=== PATIENT | female | born 1990 | race Two or more races ===

== ENCOUNTER 2016-11-07 05:49 | Emergency (ER) | payer SELFPAY ==
[2016-11-07 05:59] VITALS: BP 117/82
--- NOTE | 2016-11-07 06:12 | ED ---
Nirmala Benitez Rebecca, scribed for Jacoby Salazar MD on 11/07/16 at 0603 . Back Pain - HPI Summary HPI Summary: Pt is a 26 y/o F who presents to ED c/o back pain. Pain began yesterday morning while at work and has been constant since onset. 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 Pain is discrete to the lumbar region without radiation and is currently mild, ranked 3/10. Sx aggravated by movement, alleviated by nothing. No PMHx back problems. - History of Current Complaint Chief Complaint: EDBackInjuryPain Stated Complaint: BACK PAIN Time Seen by Provider: 11/07/16 05:55 Hx Obtained From: Patient Onset/Duration: Sudden Onset, Still Present Onset/Duration: Still Present Timing: Constant Back Pain Location: Is Discrete @ - Bilateral lumbar back Severity Currently: Mild Pain Intensity: 3 Pain Scale Used: 0-10 Numeric Aggravating Symptom(s): Movement Alleviating Symptom(s): Nothing Associated Signs And Symptoms: Positive: Negative Related History: Occupational Injury - Allergies/Home Medications Allergies/Adverse Reactions: Allergies Allergy/AdvReac Type Severity Reaction Status Date / Time Sulfa Antibiotics AdvReac Intermediate Nausea And Verified 11/07/16 05:59 Vomiting PMH/Surg Hx/FS Hx/Imm Hx Previously Healthy: Yes Endocrine/Hematology History: Denies: Hx Diabetes Cardiovascular History: Denies: Hx Coronary Artery Disease - Surgical History Surgery Procedure, Year, and Place: L knee surgery, [place] teeth Infectious Disease History: No Infectious Disease History: Denies: Traveled Outside the [place] in Last 30 Days - Family History Known Family History: Positive: Unknown - ADOPTED - Social History Alcohol Use: Occasionally Hx Substance Use: No Substance Use Type: Reports: None Hx Tobacco Use: Yes Smoking Status (MU): Current Every Day Smoker Review of Systems Negative: Fever Positive: Arthralgia - Lumbar back pain All Other Systems Reviewed And Are Negative: Yes Physical Exam Triage Information Reviewed: Yes Vital Signs On Initial Exam: Initial Vitals Temp Pulse Resp BP Pulse Ox 98.5 F 81 12 117/82 100 11/07/16 05:56 11/07/16 05:56 11/07/16 05:56 11/07/16 05:56 11/07/16 05:56 Vital Signs Reviewed: Yes Appearance: Positive: Well-Appearing, Pain Distress - mild discomfort Skin: Positive: Warm Head/Face: Positive: Normal Head/Face Inspection Eyes: Positive: POP ENT: Positive: Hearing grossly normal Neck: Positive: Supple Respiratory/Lung Sounds: Positive: Breath Sounds Present Musculoskeletal: Positive: Other - mild bilat paralumbar spasm, tender to palp Neurological: Positive: Normal Gait Psychiatric: Positive: Affect/Mood Appropriate Diagnostics - Vital Signs Vital Signs Temp Pulse Resp BP Pulse Ox 11/07/16 05:56 98.5 F 81 12 117/82 100 - Laboratory Lab Statement: Any lab studies that have been ordered have been reviewed, and results considered in the medical decision making process. Back Pain Course/Dx - Diagnoses Provider Diagnoses: Low back pain Discharge - Discharge Plan Condition: Stable Disposition: HOME Prescriptions: Cyclobenzaprine TAB* [Flexeril 10 MG TAB*] 10 mg PO TID #20 tab Patient Education Materials: Lower Back Exercises (ED), Low Back Strain (ED) Forms: *Work Release Referrals: Claudia CERVANTES,Roselyn [Primary Care Provider] - 3 Days The documentation as recorded by the Nirmala kearney Rebecca accurately reflects the service I personally performed and the decisions made by , Jacoby Salazar MD.
== END 2016-11-07 06:01 | disposition home or self-care (01) ==
LOC: ED 05:49
DX: M54.5 Low back pain (principal); Z88.2 Allergy status to sulfonamides; F17.210 Nicotine dependence, cigarettes, uncomplicated
CPT/HCPCS: 99281

== ENCOUNTER → 2017-11-23 03:36 | Emergency (ER) | payer OTHER ==
[~2017-11-23 03:36] MED LIST: Ketorolac INJ* 60 MG/2 ML VIAL IM ONE; predniSONE TAB* 20 MG PO ONE; traMADol TAB* 50 MG PO ONE
--- NOTE | 2017-11-23 04:03 | ED ---
Lower Extremity - HPI Summary HPI Summary: This is caio Singletray documenting for attending Dr. Josue Norris MD. A 27 y/o female presents to ED c/o intermittent sharp lower extremity pain reaching 8/10 in severity. Currently the patient is in severe pain distress from her bottom (buttock) down. According to the patient, she experiences intermittent lower extremity pain that started around midnight. She noted that the onset of pain was approximately one year ago, intermittently continuing, however, the pain was enough to be ignored. Today, she presents to the ED as it is "the worst pain ever". Pt denies any urinary issues and lower back pain. She noted that the pain is in a different spot then previous episodes. Additionally , the pain was not present before midnight, but began when she was completing routine activities as she believes she "tweaked it". It was noted that sitting aggravates the symptoms. - History of Current Complaint Chief Complaint: EDBackInjuryPain Stated Complaint: BACK INJURY Time Seen by Provider: 11/23/17 03:42 Hx Obtained From: Patient Mechanism Of Injury: Unknown - Possible "tweak" Onset of Pain: Hours Onset/Duration: Hours Severity Initially: Severe Severity Currently: Severe Pain Intensity: 8 Pain Scale Used: 0-10 Numeric Timing: Intermittent Location: Is Discrete @ - LE (bottom down). Associated Signs And Symptoms: Positive: Other - NEGATIVE: Back pain. Aggravating Factor(s): Other - Sitting. Alleviating Factor(s): Nothing Able to Bear Weight: Yes - Allergies/Home Medications Allergies/Adverse Reactions: Allergies Allergy/AdvReac Type Severity Reaction Status Date / Time MS Sulfa Antibiotics AdvReac Intermediate Nausea And Verified 11/07/16 05:59 [Sulfa Antibiotics] Vomiting PMH/Surg Hx/FS Hx/Imm Hx Endocrine/Hematology History: Denies: Hx Diabetes Cardiovascular History: Denies: Hx Coronary Artery Disease - Surgical History Surgery Procedure, Year, and Place: L knee surgery, [place] teeth Infectious Disease History: No Infectious Disease History: Denies: Traveled Outside the [place] in Last 30 Days - Family History Known Family History: Positive: Unknown - ADOPTED - Social History Alcohol Use: Occasionally Hx Substance Use: No Substance Use Type: Reports: None Hx Tobacco Use: Yes Smoking Status (MU): Current Every Day Smoker Review of Systems Negative: Fever Positive: no symptoms reported Positive: Other - NEGATIVE: Back pain; POSITIVE: LE pain (bottom down). All Other Systems Reviewed And Are Negative: Yes Physical Exam - Summary Physical Exam Summary: VITAL SIGNS: Reviewed. GENERAL: Patient is a well-developed and nourished female who is lying comfortable in the stretcher. Patient is not in any acute respiratory distress. HEAD AND FACE: No signs of trauma. No ecchymosis, hematomas or skull depressions. No sinus tenderness. EYES: PERRLA, EOMI x 2, No injected conjunctiva, no nystagmus. EARS: Hearing grossly intact. Ear canals and tympanic membranes are within normal limits. MOUTH: Oropharynx within normal limits. NECK: Supple, trachea is midline, no adenopathy, no JVD, no carotid bruit, no c- spine tenderness, neck with full ROM. CHEST: Symmetric, no tenderness at palpation LUNGS: Clear to auscultation bilaterally. No wheezing or crackles. CVS: Regular rate and rhythm, S1 and S2 present, no murmurs or gallops appreciated. ABDOMEN: Soft, non-tender. No signs of distention. No rebound no guarding, and no masses palpated. Bowel sounds are normal. EXTREMITIES: FROM in all major joints, no edema, no cyanosis or clubbing. Mild tenderness in the lumbar sacral area. Patient does have pain with dorsal affliction of left ankle. NEURO: Alert and oriented x 3. No acute neurological deficits. Speech is normal and follows commands. Neuro exam is intact. SKIN: Dry and warm Triage Information Reviewed: Yes Vital Signs On Initial Exam: Initial Vitals Temp Pulse Resp BP Pulse Ox 98.5 F 78 18 134/96 98 11/23/17 03:38 11/23/17 03:38 11/23/17 03:38 11/23/17 03:38 11/23/17 03:38 Vital Signs Reviewed: Yes Diagnostics - Vital Signs Vital Signs Temp Pulse Resp BP Pulse Ox 11/23/17 03:38 98.5 F 78 18 134/96 98 - Laboratory Lab Statement: Any lab studies that have been ordered have been reviewed, and results considered in the medical decision making process. - CT CT LUMBAR SPINE CT Interpretation Completed By: Radiologist - No acute findings. ED physician reviewed this radiology report. Lower Extremity Course/Dx - Course Course Of Treatment: A 27 y/o female presents to ED c/o intermittent sharp lower extremity pain reaching 8/10 in severity. Currently the patient is in severe pain distress from her bottom (buttock) down. A CT Lumbar Spine revealed no acute findings. In the ED course, the patient received Ultram, Deltasone and Toradol. Patient will be discharged with a diagnosis of left sided sciatica. Patient is to follow up with PCP in 1-2 days. Pt is agreeable with this plan. - Diagnoses Provider Diagnoses: Left sided sciatica Discharge - Sign-Out/Discharge Documenting (check all that apply): Patient Departure - DISCHARGE - Discharge Plan Condition: Stable Disposition: HOME Prescriptions: Ibuprofen TAB* [Motrin TAB* 800 MG] 800 mg PO Q6H PRN #60 tab PRN Reason: Pain predniSONE TAB* [Deltasone TAB*] 50 mg PO DAILY #7 tab traMADol TAB* [Ultram*] 50 mg PO Q6HR PRN #30 tab MDD 4 PRN Reason: Pain Patient Education Materials: Sciatica (ED) Forms: *Work Release Referrals: Roselyn Taylor NP [Primary Care Provider] - 2 Days Additional Instructions: RETURN TO ED FOR ANY NEW OR WORSENING SYMPTOMS.
[2017-11-23 04:11] LABS: Urine Appearance Clear; Urine Blood 1+ (Negative); Urine Color Straw; Urine Ketones Negative (Negative); Urine Protein Negative (Negative); Urine Red Blood Cell Trace(0-2/hpf) (Absent); Urine Specific Gravity 1.008 (1.010-1.030); Urine Urobilinogen Negative (Negative); Urine White Blood Cell Trace(0-5/hpf) (Absent)
[2017-11-23 06:27] VITALS: BP 119/80
--- NOTE | 2017-11-23 07:47 | RAD ---
INDICATION: Low back pain COMPARISON: There are no prior studies available for comparison. TECHNIQUE: Contiguous axial sections were obtained beginning lower thoracic vertebra and continuing through the sacrum. Images were reconstructed in the sagittal and coronal planes. FINDINGS: The vertebra are in normal alignment. No fracture is seen. There is no hyperdense material in the thecal sac to indicate acute hemorrhage. Incidentally noted is an incomplete left posterior lamina at the S1 level (axial image 84). Degenerative changes include loss of intervertebral disc height. There is no evidence for significant disc bulge or herniation. There is no evidence for spinal canal narrowing. The visualized soft tissues do not exhibit any acute abnormalities. The right hemipelvis there is a 3.8 cm fluid density structure most consistent with a dominant ovarian follicle in a woman of this age. IMPRESSION: No evidence of acute fracture or dislocation.
== END | disposition home or self-care (01) ==
LOC: ED 03:36
DX: M54.32 Sciatica, left side (principal); F17.200 Nicotine dependence, unspecified, uncomplicated; Z88.2 Allergy status to sulfonamides
CPT/HCPCS: 72131; 81003; 81015; 87077; 87086; 87186; 96372; 99282; A9270-GY; J1885; J7512

== ENCOUNTER 2018-02-05 19:29 | Emergency (ER) | payer BC, OTHER ==
[2018-02-05 20:20] LABS: ABS Basophils 0.1 10^3/ul (0-0.2); ABS Eosinophils 0.2 10^3/ul (0-0.6); ABS Lymphocytes 2.7 10^3/ul (1.0-4.8); ABS Monocytes 0.4 10^3/ul (0-0.8); ABS Nucleated RBC 0 10^3/ul; Eosinophil % 3.1 % (0-6); Hematocrit 43 % (35-47); Lymphocyte % 35.8 % (25-47); Mean Corpuscular HGB Conc 35 g/dl (31-36); Mean Corpuscular Hemoglobin 32 pg (27-31); Mean Corpuscular Volume 90 fL (80-97); Mean Platelet Volume 7.5 um3 (7.4-10.4); Nucleated Red Blood Cells % 0.1; Platelet Count 239 10^3/ul (150-450); Red Blood Count 4.74 10^6/ul (4.00-5.40); Red Cell Distribution Width 12 % (10.5-15); White Blood Count 7.4 10^3/ul (3.5-10.8)
[2018-02-05 20:29] LABS: INR 0.85 (0.77-1.02)
[2018-02-05 20:38] LABS: EGFR Non-African American 110.2 (>60)
[2018-02-05] MEDS ORDERED: ALPRAZolam TAB* 0.5 MG PO ONE (20:38)
--- OUTSIDE RECORDS SUMMARY | 2018-02-05 20:39 | XMS REPORT ---
:1990 External Reference #:[id number] Author Organization [facility] Address [address] [place], [place] [address] Phone [phone] Care Team Providers Name Role Phone Juana Sanchez MD Primary Care Physician Unavailable Payers Type Date Identification Numbers Payment Provider Subscriber Workers Compensation Effective: Policy Number: [place] Comp/ Jeri Mindy Natarajan 2016 [id number] Onset: 2016 PayID: [id number]; [address] [place] [address] Commercial Expires: 2015 PayID: [id number] Lev Employees [employer] [address] [place] [address] Supplemental Policy Effective: Group Number: Cont: Lev Mccollumall 2015 Employees Employees PayID: [id number] [address] [place] [address] Workers Compensation Effective: Policy Number: Jeri Work Comp Mindy Natarajan 2017 [id number] Onset: 2017 [facility] [address]; [address] [place] [address] Medigap Part B Effective: Policy Number: Blue Juan [employer] Mindy Natarajan 2017 [id number] PayID: [id number] [address] Problems Date Description Provider Status Onset: 12/04/2017 Mild depression Juana Sanchez M.D. Active Family History Date Family Member(s) Problem(s) Comments General Unknown Father 58 Social History Type Date Description Comments Marital Status Single Lives With Boyfriend Occupation Currently Working hospital aid at [employer] ETOH Use Denies alcohol use Smoking Light tobacco smoker (10 or fewer cigarettes/day) Recreational Drug Use Denies Drug Use Recreational Drug Use Former Drug User pot X 1 yr quit 2009 Exercise Type/Frequency Exercises rarely Allergies, Adverse Reactions, Alerts Date Description Reaction Status Severity Comments 12/13/2016 Sulfamethoxazole / Trimethoprim rash active Medications Medication Date Status Form Strength Qnty SIG Indications Ordering Provider Lidocaine 01/24/ Active Cream 5% 15gm apply Juana (Anorectal) 2017 daily Sanchez, 2-3 M.D. times a day as needed Norethindrone / Active Tablets 1-20mg-mcg Unknown Acetate/Ethinyl 0000 Estradiol/Ferrous Fumarate Fiber / Active Tablets one prn Unknown 0000 Ibuprofen / Active Tablets 800mg 1 tab by Unknown 0000 mouth every 8 hours as needed with food Colace / Active Capsules 100mg 1 tab by Unknown 0000 mouth 2-3 times a day as needed Amoxicillin/Clavul / Active Tablets 875-125mg bid anna Oliveira Potassium 0000 ALAYNA Sharpe Cyclobenzaprine / Hx Tablets 10mg one by Unknown HCL 0000 - mouth three 2017 times a day as needed spasm Calcium 1000 + D / Hx Tablets 1 by Unknown 0000 - mouth 01/03/ 2017 day Heart Dudley And / Hx Unknown Immunity 0000 - 2017 Tramadol HCL / Hx Tablets 50mg q 6 Elfar, 0000 - hours MD Josue 01/03/ prn 2018 Vital Signs Date Vital Result Comment 01/24/2018 Height 64 inches 5'4" Weight 138.00 lb Heart Rate 80 /min BP Systolic Sitting 110 mmHg BP Diastolic Sitting 68 mmHg O2 % BldC Oximetry 98 % BMI (Body Mass Index) 23.7 kg/m2 01/03/2018 Height 64 inches 5'4" Weight 139.00 lb Heart Rate 71 /min BP Systolic Sitting 118 mmHg BP Diastolic Sitting 68 mmHg O2 % BldC Oximetry 98 % BMI (Body Mass Index) 23.9 kg/m2 12/04/2017 Weight 137.00 lb Heart Rate 66 /min BP Systolic Sitting 128 mmHg BP Diastolic Sitting 76 mmHg Pain Level 7 O2 % BldC Oximetry 97 % 12/13/2016 Weight 129.00 lb Heart Rate 60 /min BP Systolic Sitting 98 mmHg BP Diastolic Sitting 60 mmHg Body Temperature 98.6 F O2 % BldC Oximetry 98 % 11/09/2016 Weight 131.00 lb Heart Rate 57 /min BP Systolic 116 mmHg BP Diastolic 68 mmHg Body Temperature 98.0 F O2 % BldC Oximetry 98 % Results Description No Information Procedures Description No Information Encounters Type Date Location Provider CPT E/M Dx Office Visit 01/03/2018 [facility] Internal Juana Sanchez, 17757 S33.5xxD 2:20p Tamika Barnard M.D. Office Visit 12/04/2017 [facility] Internal Juana Sanchez, 14402 S33.9xxA 8:30a Tamika Barnard M.D. S33.9xxA M54.32 M54.32 Office Visit 12/13/2016 9:40a [facility] Internal Medicine Juana Sanchez 44586 S33.5xxD Marta Barnard M.D. Office Visit 11/09/2016 9:30a [facility] Juana Sanchez, 94144 S33.5xxA - Akil Pham S33.5xxA Office Visit 11/03/2015 8:00a [facility] Aure Summers, N.P. [address] Z11.1 Z02.1 Plan of Care 01/24/2018 - Juana Sanchez M.D.K60.0 Acute anal fissureComments:I suspect the bleeding is coming from a fissure that has formed due to severe constipation , I have sent a tpoical lidocaine which will help with your painK59.00 Constipation, unspecifiedComments:use fiber , water , fruits vegetables along with waking to help with constipation as prevention of constipation is important to heal the areaJ06.9 Acute upper respiratory infection, unspecified
--- OUTSIDE RECORDS SUMMARY | 2018-02-05 20:39 | XMS REPORT ---
:1990 External Reference #:[id number] Author Organization [facility] Address [address] [place], [place] [address] Phone [phone] Care Team Providers Name Role Phone Juana Sanchez MD Primary Care Physician Unavailable Payers Type Date Identification Numbers Payment Provider Subscriber Commercial Effective: Policy Number: BS [place] Mindy Natarajan 2017 [id number] PayID: [id number] [facility] [address] [address] [id number] Workers Compensation Effective: Policy Number: [place] Comp/ [facility] Mindy Natarajan 2016 [id number] Onset: 2016 PayID: [id number] [address]; [address] [place] [address] Commercial Expires: 2015 PayID: [id number] Lev Employees [employer] Employees [address] [place] [address] Supplemental Policy Effective: Group Number: Cont: Lev Ohara 2015 Employees Employees PayID: [id number] [address] [place] [address] Workers Compensation Effective: Policy Number: [facility] Work Comp Mindy Natarajan 2017 [id number] Onset: 2017 PayID: [facility] BLDG [address]; [address] [place] [address] Problems Date Description Provider Status Onset: 12/04/2017 Mild depression Juana Sanchez M.D. Active Onset: 01/24/2018 Psoriasis Juana Sanchez M.D. Active Family History Date [...] Form Strength Qnty SIG Indications Ordering Provider Norethindrone 00/ Active Tablets 1-20mg-mcg Unknown Acetate/Ethinyl 0000 Estradiol/Ferrous Fumarate Ibuprofen / Active Tablets 800mg 1 tab by Unknown 0000 mouth every 8 hours as needed with food Colace / Active Capsules 100mg 1 tab by Unknown 0000 mouth 2-3 times a day as needed Lidocaine 01/24/ Hx Cream 5% 15gm apply Juana (Anorectal) 2018 - daily Sanchez, 2-3 M.D. 2018 times a day as needed Cyclobenzaprine / Hx Tablets 10mg one by Unknown HCL 0000 - mouth three 2016 times a day as needed spasm Calcium 1000 + D / Hx Tablets 1 by Unknown 0000 - mouth 01/03/ 2017 day Fiber / Hx Tablets one prn Unknown 0000 - 2017 Heart Dudley And / Hx Unknown Immunity 0000 - 2017 Tramadol HCL / Hx Tablets 50mg q 6 Elfar, 0000 - hours MD Josue 01/03/ prn 2017 Amoxicillin/Clavul / Hx Tablets 875-125mg bid anna Oliveira Potassium 0000 - Jacoby NKirk, 2018 Vital Signs Date Vital Result Comment 02/05/2018 Height 64 inches 5'4" Weight 138.00 lb Heart Rate 80 /min BP Systolic Sitting 120 mmHg BP Diastolic Sitting 70 mmHg O2 % BldC Oximetry 98 % BMI (Body Mass Index) 23.7 kg/m2 01/24/2018 Height 64 inches 5'4" Weight 138.00 [...] Location Provider CPT E/M Dx Office Visit 01/24/2018 1:40p [facility] Internal Medicine Juana Sanchez M.D. 71682 K60.0 - Akil K59.00 J06.9 K60.0 K59.00 J06.9 Office Visit 01/03/2018 2:20p [facility] Internal Medicine Juana Sanchez 87010 S33.5xxD Marta Barnard M.D. Office Visit 12/04/2017 8:30a [facility] Internal Medicine Juana Sanchez 40520 S33.9xxA Marta Barnard M.D. S33.9xxA M54.32 M54.32 Office Visit 12/13/2016 9:40a [facility] Internal Medicine Juana Sanchez 96485 S33.5xxD Marta Barnard M.D. Office Visit 11/09/2016 9:30a [facility] Internal Medicine Juana Sanchez, 95834 S33.5xxA Marta Barnard M.D. S33.5xxA Office Visit 11/03/2015 8:00a [facility] Aure Summers, N.P. 75038 Z11.1 Z02.1 Plan of Care 02/05/2018 - Juana Sanchez M.D.R00.2 PalpitationsNew Labs:MagnesiumBasic Metabolic PanelTSH (Thyroid Stim Horm)CBC Auto DiffFollow up:please obtain [facility]
--- NOTE | 2018-02-05 20:59 | ED ---
Syncope/Near Syncope - HPI Summary HPI Summary: Patient is a 27 y/o F w/ c/o intermittent palpitations and dizziness for the past few days. Patient was seen by PCP today for the same Sx. She also notes that today she was working and felt epigastric pain and near syncope. Patient also reports chest pain but in the room states it has resolved. SOB, N/V is denied. On triage, pain is rated 3/10, nothing is noted to aggravate/alleviate Sx. PMHx is denied. Home medications and allergies are reviewed. 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, Lasting Days - palpitations and dizziness, Resolved - chest pain Timing: Intermittent Episode Lasting - dizziness and palpitations Aggravating Factor(s): Nothing Alleviating Factor(s): Nothing Associated Signs And Symptoms: Chest Pain - since resolved, Palpitations, Other - POSITIVE: dizziness, epigastric pain, near syncope NEGATIVE: N/V, SOB - Allergies/Home Medications Allergies/Adverse Reactions: Allergies Allergy/AdvReac Type Severity Reaction Status Date / Time Sulfa (Sulfonamide AdvReac Intermediate Nausea And Verified 11/23/17 09:04 Antibiotics) Vomiting PMH/Surg Hx/FS Hx/Imm Hx Endocrine/Hematology History: Denies: Hx Diabetes Cardiovascular History: Denies: Hx Coronary Artery Disease - Surgical History Surgery Procedure, Year, and Place: L knee surgery, [place] teeth Infectious Disease History: No Infectious Disease History: Denies: Traveled Outside the [place] in Last 30 Days - Family History Known Family History: Positive: Unknown - ADOPTED - Social History Alcohol Use: Occasionally Hx Substance Use: No Substance Use Type: Reports: None Hx Tobacco Use: Yes Smoking Status (MU): Current Every Day Smoker Review of Systems Positive: Palpitations, Chest Pain Negative: Shortness Of Breath Positive: Abdominal Pain - epigastric pain . Negative: Vomiting, Nausea Neurological: Other - dizziness Positive: Syncope - near All Other Systems Reviewed And Are Negative: Yes Physical Exam - Summary Physical Exam Summary: VITAL SIGNS: Reviewed. GENERAL: Patient is a well-developed and nourished female who is lying comfortable in the stretcher. Patient is not in any acute respiratory distress. HEAD AND FACE: No signs of trauma. No ecchymosis, hematomas or skull depressions. No sinus tenderness. EYES: PERRLA, EOMI x 2, No injected conjunctiva, no nystagmus. EARS: Hearing grossly intact. Ear canals and tympanic membranes are within normal limits. MOUTH: Oropharynx within normal limits. NECK: Supple, trachea is midline, no adenopathy, no JVD, no carotid bruit, no c- spine tenderness, neck with full ROM. CHEST: Symmetric, no tenderness at palpation LUNGS: Clear to auscultation bilaterally. No wheezing or crackles. CVS: Regular rate and rhythm, S1 and S2 present, no murmurs or gallops appreciated. ABDOMEN: Soft, non-tender. No signs of distention. No rebound no guarding, and no masses palpated. Bowel sounds are normal. EXTREMITIES: FROM in all major joints, no edema, no cyanosis or clubbing. NEURO: Alert and oriented x 3. No acute neurological deficits. Speech is normal and follows commands. SKIN: Dry and warm Triage Information Reviewed: Yes Vital Signs On Initial Exam: Initial Vitals Temp Pulse Resp BP Pulse Ox 98.7 F 85 18 133/93 100 02/05/18 19:57 02/05/18 19:57 02/05/18 19:57 02/05/18 19:57 02/05/18 19:57 Vital Signs Reviewed: Yes Diagnostics - Vital Signs Vital Signs Temp Pulse Resp BP Pulse Ox 02/05/18 20:48 16 02/05/18 20:13 66 12 126/90 100 02/05/18 20:12 17 02/05/18 19:57 98.7 F 85 18 133/93 100 - Laboratory Lab Results: Lab Results 02/05/18 02/05/18 02/05/18 Range/Units 20:14 20:14 20:14 WBC 7.4 (3.5-10.8) 10^3/ul RBC 4.74 (4.00-5.40) 10^6/ul Hgb 15.0 (12.0-16.0) g/dl Hct 43 (35-47) % MCV 90 (80-97) fL MCH 32 H (27-31) pg MCHC 35 (31-36) g/dl RDW 12 (10.5-15) % Plt Count 239 (150-450) 10^3/ul MPV 7.5 (7.4-10.4) um3 Neut % (Auto) 54.2 (38-83) % Lymph % (Auto) 35.8 (25-47) % Davie % (Auto) 5.7 (0-7) % Eos % (Auto) 3.1 (0-6) % Baso % (Auto) 1.2 (0-2) % Absolute Neuts (auto) 4.0 (1.5-7.7) 10^3/ul Absolute Lymphs (auto) 2.7 (1.0-4.8) 10^3/ul Absolute Monos (auto) 0.4 (0-0.8) 10^3/ul Absolute Eos (auto) 0.2 (0-0.6) 10^3/ul Absolute Basos (auto) 0.1 (0-0.2) 10^3/ul Absolute Nucleated RBC 0 10^3/ul Nucleated RBC % 0.1 INR (Anticoag Therapy) 0.85 (0.77-1.02) APTT 25.8 L (26.0-36.3) seconds D-Dimer, Quantitative < 200 (Less Than 230) ng/mL Sodium 138 (135-145) mmol/L Potassium 3.8 (3.5-5.0) mmol/L Chloride 107 (101-111) mmol/L Carbon Dioxide 24 (22-32) mmol/L Anion Gap 7 (2-11) mmol/L BUN 9 (6-24) mg/dL Creatinine 0.65 (0.51-0.95) mg/dL Est GFR ( Amer) 133.3 (>60) Est GFR (Non-Af Amer) 110.2 (>60) BUN/Creatinine Ratio 13.8 (8-20) Glucose 100 (70-100) mg/dL Calcium 9.8 (8.6-10.3) mg/dL Magnesium 1.9 (1.9-2.7) mg/dL Total Bilirubin 0.40 (0.2-1.0) mg/dL AST 18 (13-39) U/L ALT 15 (7-52) U/L Alkaline Phosphatase 34 (34-104) U/L Troponin I 0.00 (<0.04) ng/mL Total Protein 7.4 (6.4-8.9) g/dL Albumin 4.8 (3.2-5.2) g/dL Globulin 2.6 (2-4) g/dL Albumin/Globulin Ratio 1.8 (1-3) TSH Pending Free T4 Pending Thyroxine (T4) Pending Beta HCG, Quant < 0.60 mIU/mL Result Diagrams: 02/05/18 20:14 02/05/18 20:14 Lab Statement: Any lab studies that have been ordered have been reviewed, and results considered in the medical decision making process. - EKG 193 Cardiac Rate: Tachycardia - 100 BPM EKG Rhythm: Sinus Tachycardia EKG Interpretation: non specific t-wave inversions EKG Comparison: No Significant Change - similar to prior EKG done on 12/11/2015 Re-Evaluation - Re-Evaluation First Eval Re-Evaluation Time: 21:34 Change: Improved Comment: Patient states she is feeling better, will be discharged to home and follow up with PCP in 1-2 days. Course/Dx Course Of Treatment: Patient is a 27 y/o F w/ c/o intermittent palpitations and dizziness for the past few days. Patient was seen by PCP today for the same Sx. She also notes that today she was working and felt epigastric pain and near syncope. Patient also reports chest pain but in the room states it has resolved. SOB, N/V is denied. Physical exam is normal. During ED course, patient was given Xanax 0.5 mg PO ONCE. EKG shows sinus 100, non- specific t- wave inversion which similar to prior EKG done on 12/11/2015. Labs showed beta HCG < 0.60, Thyroxine 8.78, Free T4 0.96, TSH 3.49, trop 0, d-dimer < 200. 2134 - Patient states she is feeling better, will be discharged to home and follow up with PCP in 1-2 days. Dx of palpitations. - Diagnoses Provider Diagnoses: Palpitations Discharge - Sign-Out/Discharge Documenting (check all that apply): Patient Departure - discharge - Discharge Plan Condition: Stable Disposition: HOME Prescriptions: ALPRAZolam TAB* [Xanax TAB*] 0.5 mg PO BID PRN #[id number] tab MDD 2 PRN Reason: Anxiety Patient Education Materials: Heart Palpitations (ED) Referrals: Roselyn Taylor NP [Primary Care Provider] - 2 Days Additional Instructions: RETURN TO THE EMERGENCY DEPARTMENT FOR CHANGING OR WORSENING SYMPTOMS. FOLLOW UP WITH PRIMARY CARE PHYSICIAN IN 1-2 DAYS. - Attestation Statements Document Initiated by Scribe: Yes Documenting Scribe: Edmar Cochran Provider For Whom Scribe is Documenting (Include Credential): Josue Norris MD Scribe Attestation: IEdmar , scribed for Josue Norris MD on 02/05/18 at 2228.
[2018-02-05 21:55] VITALS: BP 118/85
== END 2018-02-05 21:58 | disposition home or self-care (01) ==
LOC: ED 19:29
DX: R00.2 Palpitations (principal); R10.13 Epigastric pain; R07.9 Chest pain, unspecified; F17.210 Nicotine dependence, cigarettes, uncomplicated; R42 Dizziness and giddiness; R55 Syncope and collapse
CPT/HCPCS: 36415; 80053; 83735; 84436; 84439; 84443; 84484; 84702; 85025; 85379; 85610; 85730; 99282; A9270-GY

== ENCOUNTER 2018-02-20 20:24 | Emergency (ER) | payer BC ==
[2018-02-20 20:57] LABS: ABS Basophils 0.1 10^3/ul (0-0.2); ABS Eosinophils 0.2 10^3/ul (0-0.6); ABS Lymphocytes 2.7 10^3/ul (1.0-4.8); ABS Monocytes 0.5 10^3/ul (0-0.8); ABS Neutrophils 3.8 10^3/ul (1.5-7.7); ABS Nucleated RBC 0 10^3/ul; Eosinophil % 2.2 % (0-6); Hematocrit 42 % (35-47); Hemoglobin 14.5 g/dl (12.0-16.0); Lymphocyte % 37.4 % (25-47); Mean Corpuscular HGB Conc 34 g/dl (31-36); Mean Corpuscular Hemoglobin 31 pg (27-31); Mean Corpuscular Volume 91 fL (80-97); Mean Platelet Volume 7.8 um3 (7.4-10.4); Nucleated Red Blood Cells % 0.1; Platelet Count 237 10^3/ul (150-450); Red Blood Count 4.62 10^6/ul (4.00-5.40); Red Cell Distribution Width 12 % (10.5-15); White Blood Count 7.2 10^3/ul (3.5-10.8)
[2018-02-20] MEDS ORDERED: Pantoprazole IV* 40 MG IV ONE (21:06)
[2018-02-20 21:07] LABS: INR 0.92 (0.77-1.02)
--- NOTE | 2018-02-20 21:09 | ED ---
Abdominal Pain/Female - HPI Summary HPI Summary: A 27 y/o female presents to the ED c/o abdominal pain since 02/19/2018. She states that she has been having abdominal pain for a few weeks intermittently but the past two days the pain has been constant. She also c/o dizziness, CP, SOB and lightheadedness. She denies any nausea or vomiting. She has been taking ibuprofen once a day for a couple weeks for back pain but recently stopped because she stopped experiencing back pain. She claims that her last BM was yesterday. She is currently taking Prilosec and Tums. She also claims to have stopped smoking recently. - History of Current Complaint Chief Complaint: EDAbdPain Stated Complaint: ABD PAIN Time Seen by Provider: 02/20/18 20:40 Hx Obtained From: Patient Onset/Duration: Gradual Onset, Lasting Weeks, Still Present Severity Initially: Moderate Severity Currently: Moderate Pain Intensity: 7 Pain Scale Used: 0-10 Numeric Location: Discrete At: RLQ, Umbilical Associated Signs and Symptoms: Positive: Dizzy, Other: - light-headed Allergies/Adverse Reactions: Allergies Allergy/AdvReac Type Severity Reaction Status Date / Time Sulfa (Sulfonamide AdvReac Intermediate Nausea And Verified 02/20/18 20:35 Antibiotics) Vomiting PMH/Surg Hx/FS Hx/Imm Hx Endocrine/Hematology History: Denies: Hx Diabetes Cardiovascular History: Denies: Hx Coronary Artery Disease Sensory History: Reports: Hx Contacts or Glasses Denies: Hx Hearing Aid Opthamlomology History: Reports: Hx Contacts or Glasses - Surgical History Surgery Procedure, Year, and Place: L knee surgery, [place] teeth - Immunization History Date of Tetanus Vaccine: 11/2017 Date of Influenza Vaccine: 01/2018 Infectious Disease History: No Infectious Disease History: Denies: Traveled Outside the [place] in Last 30 Days - Family History Known Family History: Positive: Unknown - ADOPTED - Social History Alcohol Use: Rare Hx Substance Use: No Substance Use Type: Reports: None Hx Tobacco Use: Yes Smoking Status (MU): Current Every Day Smoker Review of Systems Negative: Fever Positive: Chest Pain Positive: Shortness Of Breath Positive: Abdominal Pain. Negative: Diarrhea, Nausea Neurological: Other - Positive: dizzy, lightheaded All Other Systems Reviewed And Are Negative: Yes Physical Exam - Summary Physical Exam Summary: Appearance: Well appearing, no pain distress Skin: warm, dry, reflects adequate perfusion Head/face: normal Eyes: EOMI, POP ENT: normal Neck: supple, non-tender Respiratory: CTA, breath sounds present Cardiovascular: RRR, pulses symmetrical Abdomen: Tenderness in the epigastric area Bowel: present Musculoskeletal: normal, strength/ROM intact Neuro: normal, sensory motor intact, A&Ox3 Triage Information Reviewed: Yes Vital Signs On Initial Exam: Initial Vitals Temp Pulse Resp BP Pulse Ox 97.4 F 80 16 123/77 98 02/20/18 20:31 02/20/18 20:31 02/20/18 20:31 02/20/18 20:31 02/20/18 20:31 Vital Signs Reviewed: Yes Diagnostics - Vital Signs Vital Signs Temp Pulse Resp BP Pulse Ox 02/20/18 20:31 97.4 F 80 16 123/77 98 - Laboratory Lab Results: Lab Results 02/20/18 Range/Units 20:49 WBC 7.2 (3.5-10.8) 10^3/ul RBC 4.62 (4.00-5.40) 10^6/ul Hgb 14.5 (12.0-16.0) g/dl Hct 42 (35-47) % MCV 91 (80-97) fL MCH 31 (27-31) pg MCHC 34 (31-36) g/dl RDW 12 (10.5-15) % Plt Count 237 (150-450) 10^3/ul MPV 7.8 (7.4-10.4) um3 Neut % (Auto) 52.6 (38-83) % Lymph % (Auto) 37.4 (25-47) % Benson % (Auto) 6.6 (0-7) % Eos % (Auto) 2.2 (0-6) % Baso % (Auto) 1.2 (0-2) % Absolute Neuts (auto) 3.8 (1.5-7.7) 10^3/ul Absolute Lymphs (auto) 2.7 (1.0-4.8) 10^3/ul Absolute Monos (auto) 0.5 (0-0.8) 10^3/ul Absolute Eos (auto) 0.2 (0-0.6) 10^3/ul Absolute Basos (auto) 0.1 (0-0.2) 10^3/ul Absolute Nucleated RBC 0 10^3/ul Nucleated RBC % 0.1 Result Diagrams: 02/20/18 20:49 02/20/18 20:49 Lab Statement: Any lab studies that have been ordered have been reviewed, and results considered in the medical decision making process. - Radiology CXR Radiology Interpretation Completed By: ED Physician - Negative-no acute findings. Pending official radiology report. - Ultrasound No standard instances Ultrasound Interpretation Completed By: Radiologist - No sonographic findings that correlates with patient's symptomology - EKG 20:55 Cardiac Rate: NL - 69 bpm EKG Rhythm: Sinus Rhythm Re-Evaluation - Re-Evaluation First Eval Re-Evaluation Time: 22:45 Change: Unchanged Comment: Checked in on patient Abdominal Pain Fem Course/Dx - Course Course Of Treatment: A 27 y/o female presents to the ED c/o abdominal pain since 02/19/2018. She states that she has been having abdominal pain for a few weeks intermittently but the past two days the pain has been constant. Her PE revealed tenderness in the epigastric region. Her CXR and Gallbladder US were negative. Dx: abdominal pain (non-specific). Pt will be discharged and follow up with arnulfo Anderson. She is agreeable to this plan. - Diagnoses Differential Diagnosis: Positive: Appendicitis, Diverticulitis, Gall Bladder Disease, Pancreatitis, Renal Colic Provider Diagnoses: Pain, abdominal, nonspecific Discharge - Sign-Out/Discharge Documenting (check all that apply): Patient Departure - DC - Discharge Plan Condition: Stable Disposition: HOME Prescriptions: Pantoprazole TAB (NF) [Protonix TAB (NF)] 40 mg PO DAILY #30 tab Patient Education Materials: Abdominal Pain (ED) Referrals: Juana Sanchez MD [Primary Care Provider] - 3 Days Fortino Wadsworth DO [Doctor of Osteopathy] - 3 Days Additional Instructions: Follow up with arnulfo Anderson. Return to the ED if you experience any new or worsening symptoms. - Billing Disposition and Condition Condition: STABLE Disposition: Home - Attestation Statements Document Initiated by Scribe: Yes Documenting Scribe: Kuldeep Kinney Provider For Whom Scribe is Documenting (Include Credential): Janes Mei MD Scribe Attestation: Kuldeep Benitez, scribed for Janes Mei MD on 02/21/18 at 0206. Scribe Documentation Reviewed: Yes Provider Attestation: The documentation as recorded by the scribe, Kuldeep Kinney accurately reflects the service I personally performed and the decisions made by me, Janes Mei MD
[2018-02-20 21:17] LABS: EGFR Non-African American 101.1 (>60)
[2018-02-20 21:36] LABS: Urine Appearance Clear; Urine Blood 1+ (Negative); Urine Color Straw; Urine Ketones Negative (Negative); Urine Protein Negative (Negative); Urine Red Blood Cell Absent (Absent); Urine Specific Gravity 1.004 (1.010-1.030); Urine Urobilinogen Negative (Negative); Urine White Blood Cell Trace(0-5/hpf) (Absent)
[2018-02-20] MEDS ORDERED: Morphine INJ* 4 MG/ML 1 ML SYRINGE (NEW SYRINGE VERSION) IV ONE ×2 (21:37→23:37)
[2018-02-20] MEDS ORDERED: Ondansetron INJ* 2 MG/ML VIAL IV ONE (21:37)
--- NOTE | 2018-02-20 22:06 | RAD ---
EXAM: US Abdomen Limited, Right Upper Quadrant EXAM DATE/TIME: 02/20/2018 9:34 PM CLINICAL HISTORY: 27 years old, female; Pain; Abdominal pain; Epigastric; Additional info: Cholecystitis TECHNIQUE: Real-time ultrasound of the abdomen with image documentation. Examination was focused on the right upper quadrant. COMPARISON: No relevant prior studies available. FINDINGS: Liver: Normal liver echogenicity and size with no focal lesions. Normal hepatopetal portal vein flow. Gallbladder: No gallstones, wall thickening, pericholecystic fluid, or sonographic Pineda's sign. Common bile duct: CBD measures 0.3 cm. Pancreas: Pancreatic head through proximal tail are well visualized showing no focal lesions or main ductal dilation. Distal tail is shadowed by overlying bowel gas. Right kidney: Right kidney measures 11.5 x 4.7 x 4.3 cm (121 cc). No solid cortical lesions, calculi, or pelvocaliectasis. Aorta: Nonobstructive normal caliber aorta. Inferior vena cava: Patent IVC. IMPRESSION: No sonographic findings to correlate with patient's symptomatology. To contact [facility] with a general question: Operations Center - [phone] For direct physician to physician contact: Physician Hotline - [phone] [facility] ([facility] Facility ID #[id number])
[2018-02-21] MEDS ORDERED: Iohexol 300* (CONTRAST) 10 ML SDV IV ONE (00:05)
[2018-02-21] MEDS ORDERED: Ondansetron INJ* 2 MG/ML VIAL IV ONE (00:39)
[2018-02-21] MEDS ORDERED: Ondansetron INJ* 2 MG/ML VIAL ONE (00:40)
[2018-02-21] MEDS ORDERED: Metoclopramide IV* 5 MG/ML 2 ML VIAL IV ONE (01:22)
[2018-02-21] MEDS ORDERED: Metoclopramide IV* 5 MG/ML 2 ML VIAL ONE (01:23)
--- NOTE | 2018-02-21 01:34 | RAD ---
EXAM: CT Abdomen and Pelvis With Intravenous Contrast EXAM DATE/TIME: 02/21/2018 1:14 AM CLINICAL HISTORY: 27 years old, female; Pain; Abdominal pain; Epigastric; Additional info: Abd pain TECHNIQUE: Axial computed tomography images of the abdomen and pelvis with intravenous contrast. All CT scans at this facility use at least one of these dose optimization techniques: automated exposure control; mA and/or kV adjustment per patient size (includes targeted exams where dose is matched to clinical indication); or iterative reconstruction. Coronal and sagittal reformatted images were created and reviewed. CONTRAST: 85 ml of OMNI 300 administered intravenously. COMPARISON: GB US GALL BLADDER 02/20/2018 9:18 PM FINDINGS: Lower thorax: No acute findings. ABDOMEN: Liver: Normal. No mass. Gallbladder and bile ducts: Normal. No calcified stones. No ductal dilation. Pancreas: Normal. No ductal dilation. Spleen: Normal. No splenomegaly. Adrenals: Normal. No mass. Kidneys and ureters: Normal. No hydronephrosis. Stomach and bowel: Incompletely distended grossly normal stomach. Normal caliber small bowel. No colonic masses or segmental wall thickening. Appendix: Normal caliber appendix without wall thickening or adjacent inflammation. PELVIS: Bladder: Thin-walled bladder with no focal nodularity, perivesicular stranding, or calcifications. Reproductive: Bilateral ovarian cysts measuring 4.4 cm on the right and 2.3 cm on the left (series 2, image 66). No adjacent stranding. Normal uterus. IUD in expected position within the endometrial canal. ABDOMEN and PELVIS: Intraperitoneal space: Normal. No free air. No significant fluid collection. Bones/joints: No fractures. No suspicious bone lesions. Soft tissues: Normal. No hernia. Vasculature: Normal caliber aorta with no evidence of dissection or rupture. Patent IVC. Lymph nodes: Normal. No enlarged lymph nodes. IMPRESSION: 1. No CT findings to correlate with patient's symptomatology. 2. Bilateral ovarian cysts. ACR White Paper guidelines (Caruso, et. al. JACR 2013; 10(9):675-681) suggest that no follow-up is necessary. To contact [facility] with a general question: [facility] - [phone] For direct physician to physician contact: Physician Hotline - [phone] [facility] ([facility] Facility ID #[id number])
[2018-02-21 02:23] VITALS: BP 88/58
--- NOTE | 2018-02-21 08:10 | RAD ---
HISTORY: cp/epigastic pain COMPARISONS: None VIEWS: 4: Frontal dual-energy and lateral views of the chest. FINDINGS: CARDIOMEDIASTINAL SILHOUETTE: The cardiomediastinal silhouette is normal. JENNY: The jenny are normal. PLEURA: The costophrenic angles are sharp. No pleural abnormalities are noted. LUNG PARENCHYMA: The lungs are clear. ABDOMEN: The upper abdomen is clear. There is no subphrenic gas. BONES AND SOFT TISSUES: No bone or soft tissue abnormalities are noted. OTHER: None. IMPRESSION: NO ACTIVE CARDIOPULMONARY DISEASE. [id number]
== END 2018-02-21 02:23 | disposition home or self-care (01) ==
LOC: ED 20:24
DX: R10.9 Unspecified abdominal pain (principal); R07.9 Chest pain, unspecified; R06.02 Shortness of breath; F17.210 Nicotine dependence, cigarettes, uncomplicated
CPT/HCPCS: 36415; 71046; 74177; 76705; 80053; 81003; 81015; 83690; 84484; 84702; 85025; 85610; 85730; 87086; 93005; 96374; 96375; 96376; 99284; J2270; J2405; J2765; Q9967

== ENCOUNTER 2018-04-12 20:26 | Emergency (ER) | payer BC ==
--- OUTSIDE RECORDS SUMMARY | 2018-04-12 20:44 | XMS REPORT | Continuity of Care Document ---
:1990 External Reference #:[id number] Author Name Fortino Wadsworth Address [address] [place] [address] [place] [address] Care Team Providers Name Role Phone Juana Sanchez MD Primary Care Physician Unavailable Payers Type Date Identification Numbers Payment Provider Subscriber Policy Number: [id number] Of YOSI Sullivan PayID: [id number] [address] [address] AMAN Jacobsen [address] Advance Directives Description No Information Available Problems Date Description Provider Status Onset: 03/30/2018 Hemorrhage of rectum and anus Kimberley Perdomo PA-C Active Onset: 03/30/2018 Anal fissure Kimberley Perdomo PA-C Active Onset: 02/27/2018 Epigastric pain Kimberley Perdomo PA-C Active Onset: 02/27/2018 Gastroesophageal reflux disease Kimberley Perdomo PA-C Active Family History Date Family Member(s) Problem(s) Comments General Not Known - Adopted Social History Type Date Description Comments Sex Unknown Tobacco Use Start: Unknown End: Unknown Patient is a former smoker Smoking Status Reviewed: 03/30/18 Patient is a former smoker Allergies, Adverse Reactions, Alerts Date Description Reaction Status Severity Comments 02/27/2018 Sulfa Antibiotics Active Medications Medication Date Status Form Strength Qnty SIG Indications Ordering Provider Dexilant 04/04/ Active Capsules DR 60mg 30cap 1 by Fortino Sung s mouth Ermelinda, every DO day Hydrocortisone 03/30/ Active Suppository 25mg 24uni 1 by robbie K62.5 Fortino Hebert 2017 ts of Ermelinda, rectum DO twice daily for 1-2 weeks Pantoprazole 03/23/ Active Tablets DR 40mg 30tab 1 by Kimberley Sung s mouth L. every [employer] day , PA-C Ranitidine HCL 02/27/ Active Capsules 300mg 90cap 1 by K21.9 Kimberley 2017 s mouth at L. night. Leanne , WILLAM Sucralfate 02/27/ Active Tablets 1gm 360ta 1 tablet R10.13 Kimberley 2017 bs by mouth L. on an [employer] sadi , WILLAM stomach 3-4 times daily Blisovi 24 Fe 00/ Active Tablets 1-20mg-mcg Shola 0000 (24) ,MD Maverick Mirena (52 MG) / Active IUD 20mcg/24HR Unknown 0000 Pantoprazole / Hx Tablets DR 40mg Unknown Sodium 0000 - 2017 Immunizations Description No Information Available Vital Signs Date Vital Result Comment 03/30/2018 9:33am Height 64 inches 5'4" Weight 132.00 lb BMI (Body Mass Index) 22.7 kg/m2 02/27/2018 2:37pm Height 64 inches 5'4" Weight 134.00 lb BP Systolic 108 mmHg BP Diastolic 65 mmHg Heart Rate 59 /min BMI (Body Mass Index) 23.0 kg/m2 Results Test Date Facility Test Result H/L Range Note Laboratory test 04/03/2018 [facility] Clotest SEE RESULT 1, 2 finding BELOW Laboratory test 04/03/2018 [facility] Surgical SEE RESULT 3, 4 finding Pathology BELOW Laboratory test 03/16/2018 [facility] Helico Pylori Negative Negative 5 finding Antigen- Stool Ua 02/20/2018 [facility] WBC <pending> Microscopic(!) Ua RBC <pending> Ua Epithelial Cells <pending> Ua Crystals <pending> Ua Bacteria <pending> Ua Mucous <pending> Ua Amorphous <pending> Ua Yeast <pending> Ua Casts <pending> CMP(!) 02/20/2018 [facility] Sodium(!) <pending> Potassium(!) <pending> Chloride Serum/Plasma(!) <pending> Carbon Dioxide Ser/Plasm(!) <pending> BUN - Urea Nitrogen(!) <pending> Calcium Ser/Plasma Mass/Vol(!) <pending> Creatinine Serum Mass/Vol(!) <pending> Glucose Serum(!) <pending> BUN/Creatinine Ratio(!) <pending> Albumin Serum/Plasma(!) <pending> Alkaline Phosphatase(!) <pending> Bilirubin Total Mass/Vol(!) <pending> Ast - Sgot <pending> Alt - SGPT <pending> Protein Total <pending> Laboratory test 02/20/2018 [facility] Lipase Ser/Plas (!) <pending> finding Troponin I <pending> Laboratory test 02/20/2018 [facility] Inr(!) <pending> finding CBC W/Auto 02/20/2018 [facility] White Blood Count <pending> Differential(!) Ser Auto CNT RBC Red Blood Count <pending> Hemoglobin Blood <pending> Hematocrit <pending> MCV (Corpuscular Volume) <pending> MCH (Corpuscular Hemoglobin) <pending> MCHC (Corpuscular Hemog Conc) <pending> RDW <pending> Platelet Count Blood Auto CNT <pending> MPV <pending> Lymph% <pending> [place]% <pending> Neutrophil % <pending> Absolute Lymphocytes <pending> Absolute Monocytes <pending> Absolute Neutrophils <pending> Xray 02/20/2018 [facility] Radiology X-Ray, Chest <pending> Xray 02/20/2018 [facility] Radiology US, Gallbladder ([id number]) <pending> Xray 02/20/2018 [facility] Radiology CT, Abd & Pelvis W/ Contrast <pending> 1 [id number] SEE RESULT BELOW Name: MINDY SULLIVAN : [address]: Fortino Wadsworth DO Acct: [id number] Unit: [id number] AGE: 27 Location: [facility] Re04/03/18 SEX: F Status: DEP REF SPEC: [id number] ANJEL: 04/03/[address] [facility] [address]: Fortino Wadsworth DO REQ: [id number] RECD: 04/03/18 STATUS: AHSAN NAPIER DR: Juana Sanchez MD _ [facility] ORDERED: Clotest COMMENTS: [id number] Procedure Result Reported Site Clotest Final 04/04/18- 0752 ML Clotest Negative * ML - Main Lab . END OF REPORT DEPARTMENT OF PATHOLOGY, [address] [place] [address] Gary Flores M.D. Director [facility] # [id number] SEE RESULT BELOW Name: MINDY SULLIVAN : [address]: Fortino Wadsworth DO Acct: [id number] Unit: [id number] AGE: 27 Location: [facility] Re04/03/18 SEX: F Status: DEP REF SPEC: [id number] ANJEL: 04/03/18-[address] [facility] [address]: Fortino Wadsworth DO REQ: [id number] RECD: 04/03/18 STATUS: AHSAN NAPIER DR: Juana Sanchez MD _ SOURCE: GAS ANTRUM SPDESC: ORDERED: Clotest COMMENTS: [id number] Procedure Result Reported Site Clotest Final 04/04/18- 0752 ML Clotest Negative * - Main Lab . END OF REPORT DEPARTMENT OF PATHOLOGY, [address] [place] [address] Gary Flores M.D. Director [facility] # [id number] 3 [id number] SEE RESULT BELOW Name: MINDY SULLIVAN : [address]: Fortino Wadsworth DO Acct: [id number] Unit: [id number] AGE: 27 Location: [facility] Re04/03/18 SEX: F Status: DEP REF SPEC: [id number] ANJEL: 04/03/[address] [facility] [address]: Fortino Wadsworth DO REQ: [id number] RECD: 04/03/18 STATUS: RITU NAPIER DR: Juana Sanchez MD _ ORDERED: LEVEL 4 COMMENTS: [id number] FINAL DIAGNOSIS Distal esophagus, biopsy: -- Gastroesophageal transition zone mucosa with nonspecific chronic inflammation and mild reactive changes. -- Minimal focal goblet cell/intestinal metaplasia is identified. -- No evidence of active reflux esophagitis identified. -- No dysplasia identified. CLINICAL HISTORY Epigastric pain; gastroesophageal reflux disease POST-OPERATIVE DIAGNOSIS EGD: esophagus - LA grade A erosive esophagitis; gastric - normal, biopsy, JESE test; duodenum - normal GROSS DESCRIPTION The specimen is received in formalin labeled, Biopsy Distal Esophagus, and consists of a 0.3 x 0.3 x 0.1 cm sim-pink irregular soft tissue fragment which is submitted entirely in one cassette. Signed by and Reported on: Gary Flores MD 04/10 1407 END OF REPORT DEPARTMENT OF PATHOLOGY, [address] [place] [address] Gary Flores M.D. Director [facility] # [id number] SEE RESULT BELOW Name: MINDY SULLIVAN : [address]: Fortino Wadsworth DO Acct: [id number] Unit: [id number] AGE: 27 Location: [facility] Re04/03/18 SEX: F Status: DEP REF SPEC: [id number] ANJEL: 04/03/[address] [facility] [address]: Fortino Wadsworth DO REQ: [id number] RECD: 04/03/18 STATUS: RITU NAPIER DR: Juana Sanchez MD _ ORDERED: LEVEL 4 COMMENTS: [id number] FINAL DIAGNOSIS Distal esophagus, biopsy: -- Gastroesophageal transition zone mucosa with nonspecific chronic inflammation and mild reactive changes. -- Minimal focal goblet cell/intestinal metaplasia is identified. -- No evidence of active reflux esophagitis identified. -- No dysplasia identified. CLINICAL HISTORY Epigastric pain; gastroesophageal reflux disease POST-OPERATIVE DIAGNOSIS EGD: esophagus - LA grade A erosive esophagitis; gastric - normal, biopsy, JESE test; duodenum - normal GROSS DESCRIPTION The specimen is received in formalin labeled, Biopsy Distal Esophagus, and consists of a 0.3 x 0.3 x 0.1 cm sim-pink irregular soft tissue fragment which is submitted entirely in one cassette. Signed by and Reported on: Gary Flores MD 04/10 1407 END OF REPORT DEPARTMENT OF PATHOLOGY, [address] [place] [address] Gary Flores M.D. Director [facility] # [id number] 5 Test Performed by: [address] [address] Procedures Description No Information Available Encounters Type Date Location Provider Dx Diagnosis Office Visit 03/30/2018 [facility]enter[facility] Kimberley Rodriguez K21.9 [facility]- esophageal [facility] Ezequiel Perdomo PA-C reflux disease without esophagitis R10.13 Epigastric pain K60.2 Anal fissure, unspecified K62.5 Hemorrhage of anus and rectum Office 02/27/2018 Gastroenterology Kimberley Rodriguez K21.9 Gastro-esophageal Visit 3:00p [facility] Ezequiel Perdomo reflux disease WILLAM without esophagitis R10.13 Epigastric pain Plan of Treatment 03/30/2018 - HORTENCIA SifuentesCK21.9 Gastro-esophageal reflux disease without iemfpgigwguQ80.13 Epigastric painK60.2 Anal fissure, kzovgjhzpxsH47.5 Hemorrhage of anus and rectumNew Medication:Hydrocortisone Acetate 25 mg - [address] of rectum twice daily for 1-2 weeks
--- OUTSIDE RECORDS SUMMARY | 2018-04-12 20:44 | XMS REPORT | Continuity of Care Document ---
:1990 External Reference #:[id number] Author Name Kimberley Perdomo PA-C Address [address] [place] [address] [place] [address] Care Team Providers Name Role Phone Juana Sanchez MD Primary Care Physician Unavailable Payers Type Date Identification Numbers Payment Provider Subscriber Policy Number: [id number] Of YOSI Natarajan PayID: [id number] [address] [address] AMAN Jacobsen [phone] Advance Directives Description No Information Available Problems [...] Form Strength Qnty SIG Indications Ordering Provider Hydrocortisone 03/30/ Active Suppository 25mg 24uni [address] K62.5 Fortino Acetate 2018 ts of Ermelinda, rectum DO twice daily for 1-2 weeks Pantoprazole 03/23/ Active Tablets DR 40mg 30tab 1 by Kimberley Sodium 2018 s mouth L. every trom WILLAM Ranitidine HCL 02/27/ Active Capsules 300mg 90cap 1 by K21.9 Kimberley 2018 s mouth at L. night. WILLAM Perdomo Sucralfate 11/06/ Active Tablets 1gm 360ta 1 tablet R10.13 Kimberley 2017 bs by mouth L. on an [employer] empty , PA-C stomach 3-4 times daily Blisovi 24 Fe / Active Tablets 1-20mg-mcg Shola 0000 (24) ,MD [...] Test Result H/L Range Note Laboratory test 03/16/2018 [facility] [place] Pylori Negative Negative 1 finding Antigen- Stool Ua Microscopic(!) 02/20/2018 [facility] WBC <pending> Ua RBC <pending> Ua Epithelial Cells <pending> [...] Auto CNT <pending> MPV <pending> Lymph% <pending> [place]% <pending> Neutrophil % <pending> Absolute Lymphocytes <pending> Absolute Monocytes <pending> Absolute Neutrophils <pending> Xray 02/20/2018 [facility] [place] X-Ray, Chest <pending> Xray 02/20/2018 [facility] [place] US, Gallbladder ([id number]) <pending> Xray 02/20/2018 [facility] [place] CT, Abd & Pelvis W/ Contrast <pending> 1 Test Performed by: [address] [address] Procedures Description No Information Available Encounters Type Date Location Provider Dx Diagnosis Office Visit 02/27/2018 Gastroenterology Kimberley Rodriguez K21.9 [facility]astro- esophageal 3:00[facility] PA-C reflux disease without esophagitis R10.13 Epigastric pain Plan of Treatment Future Appointment(s):04/03/2018 8:45 am - Fortino Wadsworth DO at [facility] Wzitpu6203/30/2018 - ALAYNA Sifuentes-CK21.9 Gastro-esophageal reflux disease without hsaiclzmfkaQ61.13 Epigastric painK60.2 Anal fissure, liogtzgbwpsS43.5 Hemorrhage of anus and rectumNew Medication:Hydrocortisone Acetate 25 mg - [address] of rectum twice daily for 1-2 weeks
--- OUTSIDE RECORDS SUMMARY | 2018-04-12 20:44 | XMS REPORT | Continuity of Care Document ---
:1990 External Reference #:[id number] Author Name Fortino Wadsworth Address [address] [place] [address] [place] [address] Care Team Providers Name Role Phone Juana Sanchez MD Primary Care Physician Unavailable Payers Type Date Identification Numbers Payment Provider Subscriber Policy Number: [id number] Of YOSI Sullivan PayID: [id number] [address] [address] AMAN Jacobsen [phone] Advance Directives Description No Information Available Problems [...] Active Capsules DR 60mg 30cap 1 by Fotrino Sung s mouth Ermelinda, every DO day [...] Result H/L Range Note Laboratory test 04/03/2018 [facility]ot[place] SEE RESULT 1, 2 finding BELOW Laboratory test 04/03/2018 [facility] Surgical SEE RESULT 3, 4 finding Pathology BELOW Laboratory test 03/16/2018 [facility] [place] Helico Pylori Negative Negative 5 finding Antigen- [...] Auto CNT <pending> MPV <pending> Lymph% <pending> [place]% <pending> Neutrophil % <pending> Absolute Lymphocytes <pending> Absolute Monocytes <pending> Absolute Neutrophils <pending> Xray 02/20/2018 [facility] [place], Chest <pending> Xray 02/20/2018 [facility] [place], Gallbladder ([id number]) <pending> Xray 02/20/2018 [facility] [place], Abd & Pelvis W/ Contrast <pending> 1 [id number] SEE RESULT BELOW Name: MINDY SULLIVAN : [address]: Fortino Wadsworth DO Acct: [id number] Unit: [id number] AGE: 27 Location: [facility] Re04/03/18 SEX: F Status: DEP REF SPEC: [id number] ANJEL: 04/03/[address] [facility] DR: Fortino Wadsworth DO REQ: [id number] RECD: 04/03/18 STATUS: AHSAN NAPIER DR: Juana Sanchez MD _ [facility] ORDERED: Clotest COMMENTS: [id number] Procedure Result Reported Site Clotest Final 04/04/18- 0752 ML Clotest Negative * ML - Main Lab . END OF REPORT DEPARTMENT OF PATHOLOGY, [address] [place] [address] Gary Flores M.D. Director [facility] # [id number] SEE RESULT BELOW Name: MINDY SULLIVAN : [address]: Fortino Wadsworth DO Acct: [id number] Unit: [id number] AGE: 27 Location: [facility] Re04/03/18 SEX: F Status: DEP REF SPEC: [id number] ANJEL: 04/03/18-[address] [facility] DR: Fortino Wadsworth DO REQ: [id number] RECD: 04/03/18 STATUS: AHSAN NAPIER DR: Juana Sanchez MD _ SOURCE: GAS ANTRUM SPDESC: ORDERED: Clotest COMMENTS: [id number] Procedure Result Reported Site Clotest Final 04/04/18- 0752 ML Clotest Negative * - Main Lab . END OF REPORT DEPARTMENT OF PATHOLOGY, [address] [place] [address] Gary Flores M.D. Director [facility] # [id number] 3 [id number] SEE RESULT BELOW Name: MINDY SULLIVAN : [address]: Fortino Wadsworth DO Acct: [id number] Unit: [id number] AGE: 27 Location: [facility] Re04/03/18 SEX: F Status: DEP REF SPEC: [id number] ANJEL: 04/03/[address] [facility] DR: Fortino Wadsworth DO REQ: [id number] RECD: 04/03/18 STATUS: RITU NAPIER DR: Juana Sanchez MD _ ORDERED: LEVEL 4 COMMENTS: [id number] FINAL DIAGNOSIS Distal esophagus, biopsy: -- Gastroesophageal [...] 1407 END OF REPORT DEPARTMENT OF PATHOLOGY, [address] [place] [address] Gary Flores M.D. Director [facility] # [id number] SEE RESULT BELOW Name: MINDY SULLIVAN : [address]: Fortino Wadsworth DO Acct: [id number] Unit: [id number] AGE: 27 Location: [facility] Re04/03/18 SEX: F Status: DEP REF SPEC: [id number] ANJEL: 04/03/[address] [facility] DR: Fortino Wadsworth DO REQ: [id number] RECD: 04/03/18 STATUS: RITU NAPIER DR: Juana Sanchez MD _ ORDERED: LEVEL 4 COMMENTS: [id number] FINAL DIAGNOSIS Distal esophagus, biopsy: -- Gastroesophageal [...] 1407 END OF REPORT DEPARTMENT OF PATHOLOGY, [address] [place] [address] Gary Flores M.D. Director [facility] # [id number] 5 Test Performed by: [address] [address] Procedures Description No Information Available Encounters Type [...] - HORTENCIA SifuentesCK21.9 Gastro-esophageal reflux disease without aoaqeevxndfY82.13 Epigastric painK60.2 Anal fissure, wmzfncfwixgI80.5 Hemorrhage of anus and rectumNew Medication:Hydrocortisone Acetate 25 mg - [address] of rectum twice daily for 1-2 weeks
--- OUTSIDE RECORDS SUMMARY | 2018-04-12 20:44 | XMS REPORT | Continuity of Care Document ---
:1990 External Reference #:[id number] Author Name Fortino Wadsworth Address [address] [place] [address] [place] [address] Care Team Providers Name Role Phone Juana Sanchez MD Primary Care Physician Unavailable Payers Type Date Identification Numbers Payment Provider Subscriber Policy Number: [id number] Of YOSI Sullivan PayID: [id number] [address] [address] AMAN Jacobsen [address] Advance Directives Description No Information Available Problems [...] Result H/L Range Note Laboratory test 04/03/2018 [facility] Clotest SEE RESULT 1, 2 finding BELOW Laboratory test 04/03/2018 [facility] Surgical SEE RESULT 3, 4 finding Pathology BELOW Laboratory test 03/16/2018 [facility] Helico Pylori Negative Negative 5 finding Antigen- [...] Auto CNT <pending> MPV <pending> Lymph% <pending> [place]% <pending> Neutrophil % <pending> Absolute Lymphocytes <pending> Absolute Monocytes <pending> Absolute Neutrophils <pending> Xray 02/20/2018 [facility] Radiology X-Ray, Chest <pending> Xray 02/20/2018 [facility] [place]iology US, Gallbladder ([id number]) <pending> Xray 02/20/2018 [facility] [place] CT, Abd & Pelvis W/ Contrast <pending> 1 [id number] 2 SEE RESULT BELOW Name: MINDY SULLIVAN : [address]: Fortino Wadsworth DO Acct: [id number] Unit: [id number] AGE: 27 Location: [facility] Re04/03/18 SEX: F Status: DEP REF SPEC: [id number] ANJEL: 04/03/18 [facility] DR: Fortino Wadsworth DO REQ: [id number] RECD: 04/03/18 STATUS: AHSAN NAPIER DR: Juana Sanchez MD _ S[facility] ORDERED: Clotest COMMENTS: [id number] Procedure Result Reported Site Clotest Final 04/04/18- 0752 ML Clotest Negative * ML - Main Lab . END OF REPORT DEPARTMENT OF PATHOLOGY, [address] [place] [address] Gary Flores M.D. Director [facility] # [id number] SEE RESULT BELOW Name: MINDY SULLIVAN : [address]: Fortino Wadsworth DO Acct: [id number] Unit: [id number] AGE: 27 Location: [facility] Re04/03/18 SEX: F Status: DEP REF SPEC: [id number] ANJEL: 04/03/18-945 [facility] [address]: Fortino Wadsworth DO REQ: [id number] RECD: 04/03/18 STATUS: AHSAN NAPIER DR: Juana Sanchez MD _ SOURCE: GAS ANTRUM SPDESC: ORDERED: Clotest COMMENTS: [id number] Procedure Result Reported Site Clotest Final 04/04/18- 0752 ML Clotest Negative * - Main Lab . END OF REPORT DEPARTMENT OF PATHOLOGY, [address] [place] [address] Gary Flores M.D. Director [facility] # [id number] SEE RESULT BELOW Name: MINDY USLLIVAN : [address]: Fortino Wadsworth DO Acct: [id number] Unit: [id number] AGE: 27 Location: [facility] Re04/03/18 SEX: F Status: DEP REF SPEC: [id number] ANJEL: 04/03/18 [facility] DR: Fortino Wadsworth DO REQ: [id number] RECD: 04/03/18 STATUS: RITU NAPIER DR: Juana Sanchez MD _ ORDERED: LEVEL 4 COMMENTS: [id number] FINAL DIAGNOSIS Distal esophagus, biopsy: -- Gastroesophageal [...] 1407 END OF REPORT DEPARTMENT OF PATHOLOGY, [address] [place] [address] Gary Flores M.D. Director [facility] # [id number] SEE RESULT BELOW Name: MINDY SULLIVAN : [address]: Fortino Wadsworth DO Acct: [id number] Unit: [id number] AGE: 27 Location: [facility] Re04/03/18 SEX: F Status: DEP REF SPEC: [id number] ANJEL: 04/03/18 [facility] DR: Fortino Wadsworth DO REQ: [id number] RECD: 04/03/18 STATUS: RITU NAPIER DR: Juana Sanchez MD _ ORDERED: LEVEL 4 COMMENTS: [id number] FINAL DIAGNOSIS Distal esophagus, biopsy: -- Gastroesophageal [...] 1407 END OF REPORT DEPARTMENT OF PATHOLOGY, [address] [place] [address] Gary Flores M.D. Director [facility] # [id number] 5 Test Performed by: [address] [address] Procedures Description No Information Available Encounters Type [...] - HORTENCIA SifuentesCK21.9 Gastro-esophageal reflux disease without iilogxmigfnK48.13 Epigastric painK60.2 Anal fissure, qpjmteksodkV16.5 Hemorrhage of anus and rectumNew Medication:Hydrocortisone Acetate 25 mg - [address] of rectum twice daily for 1-2 weeks
[2018-04-12] MEDS ORDERED: Albuterol/Ipratropium NEB.SOL* Albuterol 2.5 MG/Ipratropium 0.5 MG 3 ML INH ONE (21:56)
[2018-04-12] MEDS ORDERED: Albuterol HFA INHALER* 8 gm MDI INH PRN (21:56)
[2018-04-12] MEDS ORDERED: NS 0.9% 1000 ML* 1,000 ML IV ONE (22:20)
[2018-04-12 23:12] LABS: ABS Basophils 0 10^3/ul (0-0.2); ABS Eosinophils 0.1 10^3/ul (0-0.6); ABS Lymphocytes 2.5 10^3/ul (1.0-4.8); ABS Monocytes 0.3 10^3/ul (0-0.8); ABS Neutrophils 3.5 10^3/ul (1.5-7.7); ABS Nucleated RBC 0 10^3/ul; Eosinophil % 1.5 %; Hematocrit 42 % (35-47); Hemoglobin 14.4 g/dl (12.0-16.0); Lymphocyte % 38.6 %; Mean Corpuscular HGB Conc 34 g/dl (31-36); Mean Corpuscular Hemoglobin 31 pg (27-31); Mean Corpuscular Volume 90 fL (80-97); Mean Platelet Volume 7.8 fL (7.4-10.4); Nucleated Red Blood Cells % 0; Platelet Count 198 10^3/ul (150-450); Red Blood Count 4.63 10^6/ul (4.00-5.40); Red Cell Distribution Width 13 % (10.5-15); White Blood Count 6.4 10^3/ul (3.5-10.8)
[2018-04-12 23:30] LABS: ALT 10 U/L (7-52); AST 15 U/L (13-39); Albumin 4.1 g/dL (3.2-5.2); Albumin/Globulin Ratio 1.5 (1-3); Alkaline Phosphatase 30 U/L (34-104); Anion Gap 7 mmol/L (2-11); BUN/Creatinine Ratio 16.4 (8-20); Blood Urea Nitrogen 11 mg/dL (6-24); C Reactive Protein 1.71 mg/L (<8.01); CO2 Carbon Dioxide 27 mmol/L (22-32); Calcium 9.2 mg/dL (8.6-10.3); Chloride 106 mmol/L (101-111); EGFR Non-African American 106.4 (>60); Globulin 2.7 g/dL (2-4); Glucose 102 mg/dL (70-100); Potassium 3.4 mmol/L (3.5-5.0); Sodium 140 mmol/L (135-145); Total Protein 6.8 g/dL (6.4-8.9)
[2018-04-12 23:36] LABS: HCG Pregnancy < 0.60 mIU/mL
--- NOTE | 2018-04-12 23:52 | ED ---
Respiratory - HPI Summary HPI Summary: Patient complains of productive cough, chest heaviness x one week. History of endoscopy one week ago, but states she has had endoscopy before without reaction. Denies fever, acute on chronic headache, sore throat, facial pressure , ear pain, N/V/D, SOB, abdominal pain, change in urine, change in BM. Recent endoscopy indicates possible Sheets's esophagus. History of GERD, exercise- induced asthma. Former smoker quit 1 month ago. - History of Current Complaint Chief Complaint: EDUpperRespComplaint Stated Complaint: SOB Time Seen by Provider: 04/12/18 21:12 Hx Obtained From: Patient Onset/Duration: Gradual Onset, Lasting Days Timing: Intermittent Episodes Lasting: Current Severity: None Pain Intensity: 0 Character: Cough (Nonproductive) Sputum Amount: Small Aggravating Factor(s): Deep Breaths Alleviating Factor(s): Nothing Associated Signs and Symptoms: Negative - Allergy/Home Medications Allergies/Adverse Reactions: Allergies Allergy/AdvReac Type Severity Reaction Status Date / Time Sulfa (Sulfonamide Allergy Intermediate Hives Verified 04/12/18 20:33 Antibiotics) Home Medications: Home Medications Dexlansoprazole (NF) [Dexilant (NF)] 60 mg PO DAILY 04/12/18 [History Confirmed 04/12/18] PMH/Surg Hx/FS Hx/Imm Hx Endocrine/Hematology History: Denies: Hx Diabetes Cardiovascular History: Denies: Hx Coronary Artery Disease Respiratory History: Reports: Hx Asthma - exercised induced asthma Denies: Hx Chronic Obstructive Pulmonary Disease (COPD) History: Denies: Hx Dialysis Sensory History: Reports: Hx Contacts or Glasses Denies: Hx Hearing Aid Opthamlomology History: Reports: Hx Contacts or Glasses Psychiatric History: Denies: Hx Autism - Surgical History Surgery Procedure, Year, and Place: L knee surgery, [place] teeth - Immunization History Date of Tetanus Vaccine: 11/2017 Date of Influenza Vaccine: 01/2018 Infectious Disease History: No Infectious Disease History: Denies: Traveled Outside the [place] in Last 30 Days - Family History Known Family History: Positive: Unknown - ADOPTED - Social History Occupation: Employed Full-time Alcohol Use: Rare Hx Substance Use: No Substance Use Type: Reports: None Hx Tobacco Use: Yes Smoking Status (MU): Current Every Day Smoker Review of Systems Constitutional: Negative Eyes: Negative ENT: Negative Positive: Other Positive: Cough Gastrointestinal: Negative Genitourinary: Negative Musculoskeletal: Negative Skin: Negative Neurological: Negative Psychological: Normal All Other Systems Reviewed And Are Negative: Yes Physical Exam Triage Information Reviewed: Yes Vital Signs On Initial Exam: Initial Vitals Temp Pulse Resp BP Pulse Ox 97.3 F 68 16 120/85 97 04/12/18 20:27 04/12/18 20:27 04/12/18 20:27 04/12/18 20:27 04/12/18 20:27 Vital Signs Reviewed: Yes Appearance: Positive: Well-Appearing Skin: Positive: Warm Head/Face: Positive: Normal Head/Face Inspection Eyes: Positive: Normal ENT: Positive: Pharyngeal erythema, TMs normal Neck: Positive: Supple Respiratory/Lung Sounds: Positive: Clear to Auscultation Cardiovascular: Positive: Normal Abdomen Description: Positive: Nontender Musculoskeletal: Positive: Normal Neurological: Positive: Normal Psychiatric: Positive: Normal AVPU Assessment: Alert - Nataliya Coma Scale Best Eye Response: 4 - Spontaneous Best Motor Response: 6 - Obeys Commands Best Verbal Response: 5 - Oriented Coma Scale Total: 15 Diagnostics - Vital Signs Vital Signs Temp Pulse Resp BP Pulse Ox 04/12/18 22:15 54 12 100 04/12/18 21:09 77 15 119/66 99 04/12/18 21:07 60 18 98 04/12/18 20:27 97.3 F 68 16 120/85 97 - Laboratory Lab Results: Lab Results 04/12/18 04/12/18 04/12/18 Range/Units 22:59 22:59 22:59 WBC 6.4 (3.5-10.8) 10^3/ul RBC 4.63 (4.00-5.40) 10^6/ul Hgb 14.4 (12.0-16.0) g/dl Hct 42 (35-47) % MCV 90 (80-97) fL MCH 31 (27-31) pg MCHC 34 (31-36) g/dl RDW 13 (10.5-15) % Plt Count 198 (150-450) 10^3/ul MPV 7.8 (7.4-10.4) fL Neut % (Auto) 54.2 % Lymph % (Auto) 38.6 % [place] % (Auto) 5.1 % Eos % (Auto) 1.5 % Baso % (Auto) 0.6 % Absolute Neuts (auto) 3.5 (1.5-7.7) 10^3/ul Absolute Lymphs (auto) 2.5 (1.0-4.8) 10^3/ul Absolute Monos (auto) 0.3 (0-0.8) 10^3/ul Absolute Eos (auto) 0.1 (0-0.6) 10^3/ul Absolute Basos (auto) 0 (0-0.2) 10^3/ul Absolute Nucleated RBC 0 10^3/ul Nucleated RBC % 0 D-Dimer, Quantitative < 200 (Less Than 230) ng/mL Sodium 140 (135-145) mmol/L Potassium 3.4 L (3.5-5.0) mmol/L Chloride 106 (101-111) mmol/L Carbon Dioxide 27 (22-32) mmol/L Anion Gap 7 (2-11) mmol/L BUN 11 (6-24) mg/dL Creatinine 0.67 (0.51-0.95) mg/dL Est GFR ( Amer) 128.7 (>60) Est GFR (Non-Af Amer) 106.4 (>60) BUN/Creatinine Ratio 16.4 (8-20) Glucose 102 H (70-100) mg/dL Calcium 9.2 (8.6-10.3) mg/dL Total Bilirubin 0.40 (0.2-1.0) mg/dL AST 15 (13-39) U/L ALT 10 (7-52) U/L Alkaline Phosphatase 30 L (34-104) U/L Troponin I 0.00 (<0.04) ng/mL C-Reactive Protein 1.71 (<8.01) mg/L Total Protein 6.8 (6.4-8.9) g/dL Albumin 4.1 (3.2-5.2) g/dL Globulin 2.7 (2-4) g/dL Albumin/Globulin Ratio 1.5 (1-3) Beta HCG, Quant < 0.60 mIU/mL Result Diagrams: 04/12/18 22:59 04/12/18 22:59 Lab Statement: Any lab studies that have been ordered have been reviewed, and results considered in the medical decision making process. Disposition - Course Course Of Treatment: Patient complains of productive cough, chest heaviness x one week. History of endoscopy one week ago, but states she has had endoscopy before without reaction. Denies fever, acute on chronic headache, sore throat, facial pressure, ear pain, N/V/D, SOB, abdominal pain, change in urine, change in BM. Recent endoscopy indicates possible Sheets's esophagus. History of GERD, exercise-induced asthma. Former smoker quit 1 month ago. Physical exam unremarkable. Patient also had alternating heart rate, down into the 50s when lying down, accelerated to 80s when sitting up. Vital signs within normal limits and stable. Labs unremarkable. EKG has multiple T-wave inversion. D- dimer negative. Chest x-ray unremarkable. Patient chest heaviness did not improve with DuoNeb. Likely respiratory infection. Rx for azithromycin. Patient advised to follow up with cardiology regarding diffuse T-wave inversion on EKG. Patient understands and approves of plan. - Diagnoses Provider Diagnoses: Respiratory infection Discharge - Sign-Out/Discharge Documenting (check all that apply): Patient Departure - Discharge Plan Condition: Stable Disposition: HOME Prescriptions: Azithromycin 250 mg PO DAILY 5 Days #6 tablet Patient Education Materials: Acute Cough (ED) Referrals: Juana Sanchez MD [Primary Care Provider] - Additional Instructions: Take antibiotics as directed. Follow up with cardiology for diffuse inverted T waves. Return to the ED for any new or worsening symptoms. - Billing Disposition and Condition Condition: STABLE Disposition: Home
[2018-04-13 00:03] VITALS: BP 103/59
== END 2018-04-13 00:02 | disposition home or self-care (01) ==
LOC: ED 20:26
DX: J06.9 Acute upper respiratory infection, unspecified (principal); J45.990 Exercise induced bronchospasm; F17.200 Nicotine dependence, unspecified, uncomplicated; K21.9 Gastro-esophageal reflux disease without esophagitis
CPT/HCPCS: 36415; 71046; 80053; 84484; 84702; 85025; 85379; 86140; 93005; 96360; 96361; 99283; A9270-GY

== ENCOUNTER 2018-12-04 01:08 | Emergency (ER) | payer BC ==
[2018-12-04 01:15] VITALS: BP 118/88
[2018-12-04] MEDS ORDERED: hydrOXYzine HCL TAB* 25 MG PO ONE (01:27)
[2018-12-04] MEDS ORDERED: predniSONE TAB* 50 MG PO ONE (01:27)
--- NOTE | 2018-12-04 01:32 | ED ---
Allergic Reaction/Systemic - HPI Summary HPI Summary: This pt is a 28 Y/O F presenting to [facility] with a CC of a bee sting to her L ring finger from 12/01/18 while hiking. She stated that it is swollen, red and itchy. She also stated that she has increased pain when she moves her finger, but at baseline her finger is rated a 2/10 in severity. She denied any SOB, coughing, CP, N/V, and headaches. She has no PMHx of allergic reactions and stated that she had no alleviating symptoms. - History of Current Complaint Chief Complaint: EDRashSkinAbscess Time Seen by Provider: 12/04/18 01:22 Hx Obtained From: Patient Onset/Duration: Sudden Onset, Started days ago - 2, Still Present Timing: Constant Severity Initially: Mild Severity Currently: Mild Pain Intensity: 2 Pain Scale Used: 0-10 Numeric Location: Discrete @ - L ring finger Character: Swelling, Pain Aggravating Factor(s): Other - movement Alleviating Factor(s): Nothing Associated Signs And Symptoms: Positive: Negative - headaches, Other: - L ring finger is swollen, red, and itchy.. Negative: Abdominal Pain, Chest Pain, Cough Wheezing, Difficulty Breathing, Nausea, Vomiting - Allergies/Home Medications Allergies/Adverse Reactions: Allergies Allergy/AdvReac Type Severity Reaction Status Date / Time Sulfa (Sulfonamide Allergy Intermediate Hives Verified 07/05/18 20:09 Antibiotics) bee venom protein (honey bee) Allergy Swelling Verified 12/04/18 01:12 sulfamethoxazole Allergy Hives Verified 12/04/18 01:12 [From Bactrim] triamcinolone [From Kenalog] Allergy Hives/Diff. Verified 12/04/18 01:12 Breathing/I tching trimethoprim [From Bactrim] Allergy Hives Verified 12/04/18 01:12 PMH/Surg Hx/FS Hx/Imm Hx Previously Healthy: Yes Endocrine/Hematology History: Denies: Hx Diabetes Cardiovascular History: Reports: Other Cardiovascular Problems/Disorders - mild mitral valve prolapse Denies: Hx Coronary Artery Disease Respiratory History: Reports: Hx Asthma - exercised induced asthma Denies: Hx Chronic Obstructive Pulmonary Disease (COPD) History: Denies: Hx Dialysis Sensory History: Reports: Hx Contacts or Glasses Denies: Hx Hearing Aid Opthamlomology History: Reports: Hx Contacts or Glasses Psychiatric History: Reports: Hx Anxiety, Hx Depression Denies: Hx Autism - Surgical History Surgery Procedure, Year, and Place: L knee surgery, wisdom teeth - Immunization History Date of Tetanus Vaccine: 11/2017 Date of Influenza Vaccine: 01/2018 Infectious Disease History: No Infectious Disease History: Denies: Traveled Outside the [place] in Last 30 Days - Family History Known Family History: Positive: Unknown - ADOPTED - Social History Occupation: Employed Full-time Lives: With Family Alcohol Use: Rare Hx Substance Use: No Substance Use Type: Reports: None Hx Tobacco Use: Yes Smoking Status (MU): Former Smoker Review of Systems Negative: Fever Negative: Chest Pain Negative: Shortness Of Breath, Cough Negative: Vomiting, Nausea Skin: Other - swollen, red, itchy rash to L ring finger All Other Systems Reviewed And Are Negative: Yes Physical Exam - Summary Physical Exam Summary: VITAL SIGNS: Reviewed. GENERAL: Patient is a well-developed and nourished female who is lying comfortable in the stretcher. Patient is not in any acute respiratory distress. HEAD AND FACE: No signs of trauma. No ecchymosis, hematomas or skull depressions. No sinus tenderness. EYES: PERRLA, EOMI x 2, No injected conjunctiva, no nystagmus. EARS: Hearing grossly intact. Ear canals and tympanic membranes are within normal limits. MOUTH: Oropharynx within normal limits. NECK: Supple, trachea is midline, no adenopathy, no JVD, no carotid bruit, no c- spine tenderness, neck with full ROM CHEST: Symmetric, no tenderness at palpation LUNGS: Clear to auscultation bilaterally. No wheezing or crackles. CVS: Regular rate and rhythm, S1 and S2 present, no murmurs or gallops appreciated. ABDOMEN: Soft, non-tender. No signs of distention. No rebound no guarding, and no masses palpated. Bowel sounds are normal. EXTREMITIES: FROM in all major joints, no edema, no cyanosis or clubbing. NEURO: Alert and oriented x 3. No acute neurological deficits. Speech is normal and follows commands. SKIN: Dry and warm, L hand is swollen, tender, warm, and itchy Triage Information Reviewed: Yes Vital Signs On Initial Exam: Initial Vitals Temp Pulse Resp BP Pulse Ox 98.0 F 74 15 118/88 97 12/04/18 01:10 12/04/18 01:10 12/04/18 01:10 12/04/18 01:10 12/04/18 01:10 Vital Signs Reviewed: Yes Diagnostics - Vital Signs Vital Signs Temp Pulse Resp BP Pulse Ox 12/04/18 01:10 98.0 F 74 15 118/88 97 - Laboratory Lab Statement: Any lab studies that have been ordered have been reviewed, and results considered in the medical decision making process. Allergic Reaction Course/Dx - Course Course Of Treatment: This pt is a 28 Y/O F presenting to [facility] with a CC of a bee sting to her L ring finger from 12/01/18 while hiking. She stated that it is swollen, red and itchy. Her PE found that her L hand is itchy, red, swollen, and tender to palpitation. She will be discharged home with a Dx of a local allergic reaction and a bee sting and given ABX treatment. - Diagnoses Provider Diagnoses: Allergic reaction to bee sting Discharge - Sign-Out/Discharge Documenting (check all that apply): Patient Departure - discharge Patient Received Moderate/Deep Sedation with Procedure: No - Discharge Plan Condition: Stable Disposition: HOME Patient Education Materials: Allergies (ED) Referrals: Juana Sanchez MD [Primary Care Provider] - 2 Days Additional Instructions: PLEASE RETURN TO THE ED IMMEDIATELY FOR WORSENING OR CONCERNING SYMPTOMS AND FOLLOW UP WITH YOUR PRIMARY CARE PHYSICIAN IN 1-3 DAYS. - Attestation Statements Document Initiated by Scribe: Yes Documenting Scribe: Leobardo Angel Provider For Whom Scribe is Documenting (Include Credential): Josue Norris MD Scribe Attestation: Leobardo Benitez, scribed for Josue Norris MD on 12/04/18 at 0135. Status of Scribe Document: Ready
== END 2018-12-04 01:41 | disposition home or self-care (01) ==
LOC: ED 01:08
DX: T63.441A Toxic effect of venom of bees, accidental (unintentional), initial encounter (principal); Y92.89 Other specified places as the place of occurrence of the external cause; I34.1 Nonrheumatic mitral (valve) prolapse; F41.9 Anxiety disorder, unspecified; F32.9 Major depressive disorder, single episode, unspecified; J45.909 Unspecified asthma, uncomplicated; Z88.8 Allergy status to other drugs, medicaments and biological substances; Z88.1 Allergy status to other antibiotic agents; Z88.2 Allergy status to sulfonamides; Z87.891 Personal history of nicotine dependence
CPT/HCPCS: 99282; A9270-GY; J7512

== ENCOUNTER 2019-05-24 09:50 | Emergency (ER) | payer BC ==
[2019-05-24 10:07] VITALS: BP 118/82
--- NOTE | 2019-05-24 10:39 | UC ---
UC General HPI - HPI Summary HPI Summary: 28 yo female c/o fever, achy all over, st, h/a. No rash. Mild cough. No sob /cp / GI Works in healthcare. - History of Current Complaint Chief Complaint: UCGeneralIllness Stated Complaint: FLU LIKE SYMPTOMS Time Seen by Provider: 05/24/19 10:39 Hx Obtained From: Patient Hx Last Menstrual Period: iud Pain Intensity: 3 - Allergy/Home Medications Allergies/Adverse Reactions: Allergies Allergy/AdvReac Type Severity Reaction Status Date / Time Sulfa (Sulfonamide Allergy Intermediate Hives Verified 05/24/19 10:07 Antibiotics) bee venom protein (honey bee) Allergy Swelling Verified 05/24/19 10:07 sulfamethoxazole Allergy Hives Verified 05/24/19 10:07 [From Bactrim] triamcinolone [From Kenalog] Allergy Hives/Diff. Verified 05/24/19 10:07 Breathing/I tching trimethoprim [From Bactrim] Allergy Hives Verified 05/24/19 10:07 Home Medications: Home Medications Zolpidem TAB* [Ambien*] 1 OPHTHALMIC DAILY 05/24/19 [History] PMH/Surg Hx/FS Hx/Imm Hx Previously Healthy: Yes - Surgical History Surgical History: Yes Surgery Procedure, Year, and Place: L knee surgery, wisdom teeth d/c endo - Family History Known Family History: Positive: Unknown - ADOPTED - Social History Alcohol Use: Rare Substance Use Type: None Smoking Status (MU): Former Smoker Review of Systems All Other Systems Reviewed And Are Negative: Yes Constitutional: Positive: Fever, Fatigue Skin: Positive: Negative Eyes: Positive: Negative ENT: Positive: Other - see hpi Respiratory: Positive: Other - see hpi Cardiovascular: Positive: Negative Gastrointestinal: Positive: Negative Genitourinary: Positive: Negative Motor: Positive: Negative Neurovascular: Positive: Negative Musculoskeletal: Positive: Other: - see hpi Neurological: Positive: Other - see hpi Psychological: Positive: Negative Is Patient Immunocompromised?: No Physical Exam Triage Information Reviewed: Yes Appearance: Well-Nourished - sitting up looks tired but nad Vital Signs: Initial Vital Signs Temp 98.8 F 05/24/19 10:04 Pulse 86 05/24/19 10:04 Resp 16 05/24/19 10:04 BP 118/82 05/24/19 10:04 Pulse Ox 100 05/24/19 10:04 Vital Signs Reviewed: Yes Eye Exam: Normal ENT: Positive: Pharyngeal erythema, Nasal congestion, TM dull Neck exam: Normal Neck: Positive: Supple, Nontender, No Lymphadenopathy Respiratory Exam: Normal Respiratory: Positive: Chest non-tender, Lungs clear, Normal breath sounds, No respiratory distress, No accessory muscle use Cardiovascular Exam: Normal Cardiovascular: Positive: RRR, Pulses Normal, Brisk Capillary Refill Abdominal Exam: Normal Abdomen Description: Positive: Nontender Musculoskeletal Exam: Normal Neurological Exam: Normal - nonfocal Psychological Exam: Normal - nad Skin Exam: Normal - nondiaphoretic no visible or reported rash Course/Dx - Course Course Of Treatment: Reviewed ancillaries. Neg influenza a/b. Reviewed coa / tx plan. Likely non-influenza viral syndrome. Reviewed coa / tx plan. Questions as posed answered to the best of my ability. - Diagnoses Provider Diagnosis: Viral syndrome Discharge ED - Sign-Out/Discharge Documenting (check all that apply): Patient Departure All imaging exams completed and their final reports reviewed: No Studies - Discharge Plan Condition: Stable Disposition: HOME Patient Education Materials: Viral Syndrome (ED) Forms: *Work Release Referrals: Juana Sanchez MD [Primary Care Provider] - Additional Instructions: Hydrate. Seek medical attention if worse or new problems. Follow up with your primary care physician, per routine. - Billing Disposition and Condition Condition: STABLE Disposition: Home
[2019-05-24 11:00] LABS: Influenza A Molecular Negative (Negative); Influenza B Molecular Negative (Negative)
== END 2019-05-24 11:40 | disposition home or self-care (01) ==
LOC: UCEAST 09:50
DX: B34.9 Viral infection, unspecified (principal); R53.83 Other fatigue; Z88.2 Allergy status to sulfonamides; Z88.8 Allergy status to other drugs, medicaments and biological substances; Z91.030 Bee allergy status; Z87.891 Personal history of nicotine dependence
CPT/HCPCS: 99211; G0463